=== PATIENT | female | born 1950 | race Two or more races ===

== ENCOUNTER → 2016-09-02 | Outpatient (CLI) | payer MEDICARE ==
--- NOTE | 2016-09-02 23:44 | HKNOTE ---
DATE OF SERVICE: 09/02/2016 REFERRING PHYSICIAN: Dr. Ramesh Tran MAIN COMPLAINT: Pain in both knees, worse on the left side. HISTORY OF MAIN COMPLAINT: The patient is a 66-year-old female who his knees were both completely n ormal until 1 month ago. He "struck my left knee against a table in our kitchen." Since then she maloney s had pain in the left knee. The right knee is also giving her pain now and she thinks it "may be d ue to favoring the left knee." The left knee does not swell. It occasionally feels unstable and on one occasion she almost fell. T he knee locked on one occasion. The right knee has none of the symptoms of an internal derangement. The patient saw Dr. Tran for an evaluation of her painful knee and he referred her to me for an o rthopedic evaluation. PRESENT COMPLAINTS: Pain is mainly in the left knee. Pain is aggravated by walking, weightbearing and especially stair climbing. She does get rest pain and night pain. She takes Tylenol for the pa in. She has a history of problems with her lower back. She has had some physical therapy. On a le kailey surface she can walk for 30 minutes without stopping if she goes in a straight line and on even ground. She limps some of the time. She does not have a shoe lift. She can clip her toenails and tie her shoelaces. SPORTING ACTIVITIES: Walking. PAST ORTHOPEDIC HISTORY: Previous orthopedic operations: None. PRIOR CORTISONE INTAKE: None. ALCOHOL INTAKE: Once a month. No other joint problems. BLOOD TESTS FOR ARTHRITIS: None. WORK STATUS: The patient "stays at home." PAST MEDICAL HISTORY: Hypothyroid. PAST SURGICAL HISTORY: Reconstructive eye surgery 2014. Angiogram and clipping of a cerebral aneurys m 1999. Three sections. FAMILY HISTORY: Father age 92, alive and well. Mother at 83. COURSES AND CONTRIBUTING FACTORS: Not mentioned. SYSTEMS REVIEW: Prone to headaches, gait disturbance, otherwise negative. HABITS: The patient does not smoke. She drinks 3 alcoholic beverages a month. SHOE DRESSER: Dr. Ramesh Tran, [id number] [facility] [address], [address], [place] [id number] PHYSICAL EXAMINATION: GENERAL: Patient is a fit-looking 66-year-old female. She does not speak any Lithuanian. She comes i n with her daughter Meena, who speaks Lithuanian very well. VITAL SIGNS: Height 5 feet 7 inches, weight 170 pounds, blood pressure 150/70, temperature 97.8. GAIT: Patient's gait is normal. She walks without a walking aid. HIPS: Both hips have full range of motion without pain. LEFT KNEE: The left knee shows normal alignment. Active and passive extension is full but painful. Active and passive flexion lacks 20 degrees (painful). The medial and lateral collateral ligaments a nd cruciate ligaments are intact. Yohan test is negative. 1+ effusion. Tender over the medial bipin nt line. No scarring, crepitus, or cysts. The patella tracks normally. There is no tenderness on the articular surface of the patella or in the patellar groove. The Q angle is normal. IMAGING: Plain x-rays of both knees obtained today were reviewed (3 views each). Images are normal for a patient of her age. DISCUSSION: The patient has the classic symptoms of an internal derangement of the knee (probable t orn meniscus). She has the classic symptoms and clinical findings of an internal derangement (probably a torn meni scus). MANAGEMENT: The patient is being referred for an MRI scan of the left knee. I will call her jefferson Robledo on her cell phone, to give her the results of the MRI scan. Dictated By: KARY WILKERSON/EMELI Conf#: [id number] DID#: [id number] CC: RAMESH TRAN MD;*EndCC*
--- NOTE | 2016-09-02 23:50 | HKNOTE ---
DATE OF SERVICE: 09/02/2016 Dr. Ramesh Tran [id number] [facility], [address] [place] [address] Tran: Thank you for referring Tiffanie Meza. She was seen in my office today complaining of pain, swelling and instability of the left knee. Clinical and x-ray findings are suggestive of a torn meniscus, but are not clear cut enough to do so at this time. She is being referred for an MRI scan of the knee and further treatment will depend on the result of the MRI scan. Her daughter's phone number is [phone]. Sincerely, Dictated By: KARY WILKERSON/EMELI Conf#: [id number] DID#: [id number]
--- NOTE | 2016-09-03 12:02 | RADRPT ---
PROCEDURE: XR bilateral knees. CLINICAL INDICATION: Knee pain TECHNIQUE: AP weightbearing, lateral weightbearing and sunrise views of each knee are available fo r review. COMPARISON: None available FINDINGS: Right knee: There is mild osteoarthrosis involving the right patellofemoral compartment . This is associated wit h minimal osteophytosis. Left knee: There is mild osteoarthrosis involving the left medial tibial femoral compartment and patellofemoral compartment. This is associated with joint space narrowing and osteophytosis. There is otherwise normal mineralization, architecture and alignment. No fractures are identified. No osseous lesions are identified. The soft tissues are unremarkable. IMPRESSION: Mild osteoarthrosis involving the right patellofemoral compartment Mild osteoarthrosis involving the left medial tibial femoral compartment and patellofemoral compartm ent. RPTAT: HGDB .Khris Ly MD, Date Time Electronically viewed and signed by .Khris Ly MD, on 09/03/2016 12:02 .B/
== END | disposition home or self-care (01) ==
LOC: HKI 15:48
DX: M25.562 Pain in left knee (principal)
CPT/HCPCS: 73562; G0463